=== PATIENT | female | born 1985 | race Caucasian/White ===

== ENCOUNTER 2017-12-30 17:03 | Inpatient (IN) | payer OTHER ==
[2017-12-30] MEDS ORDERED: Sodium Chloride 0.9% 10 ML Syringe FLUSH PRN (17:12)
[2017-12-30] MEDS ORDERED: Oxytocin/Lactated Ringers 20 UNIT/1,000 ML BAG IV ONE (17:14)
[2017-12-30] MEDS ORDERED: Lactated Ringers 1,000 ML IV SCH (17:15)
--- NOTE | 2017-12-30 17:49 | PCM.LDHP ---
L&D History of Present Illness - General Date of Service: 12/30/17 Admit Problem/Dx: Admission Diagnosis/Problem Admission Diagnosis/Problem Source of Information: Patient History Limitations: Reports: No Limitations - History of Present Illness Introduction:: 32 JESS 12/29/2017 EGA 40w1d spontaneous rupture of membranes at 1630 approximately, clear fluid. GBS negative. Presented to L&D at 7 cm at 1709 Timing/Duration: Reports: hour(s): Location, : Reports: Abdomen, Lower back Quality: Reports: Ache, Dull, Pressure Severity: Severe Pain Score: 10 Improves with: Reports: None Worsens with: Reports: None Associated Symptoms: Reports: N - Related Data Allergies/Adverse Reactions: Allergies Allergy/AdvReac Type Severity Reaction Status Date / Time No Known Allergies Allergy Verified 08/31/16 03:44 Home Medications: Home Meds Acetaminophen [Tylenol] 650 mg PO Q6H PRN #0 tablet 09/01/16 [Rx] Docusate Sodium [Colace] 100 mg PO BID PRN #0 cap 09/01/16 [Rx] Ibuprofen [IJD: Ibuprofen] 200 - 600 mg PO Q6H PRN #0 tablet 09/01/16 [Rx] Witch Terese [Tucks] 1 pad TOP ASDIRECTED PRN #0 pad 09/01/16 [Rx] Past Medical History Cardiovascular History: Reports: None Respiratory History: Reports: Other (See Below) Other Respiratory History: Pt getting over current URI-cough. No fevers, no abx taken. Gastrointestinal History: Reports: None Genitourinary History: Reports: UTI, Recurrent Other Genitourinary History: Frequent UTI with . Does not take abx, uses other homeopathic txs instead. IMMIGRATION PARALEGAL History: Reports: Musculoskeletal History: Reports: Other (See Below) Other Musculoskeletal History: Facial kick from a horse in 2012 with 5 orbital/ facial bone fractures. Healed without suregery/ incident. Neurological History: Reports: None Psychiatric History: Reports: None Endocrine/Metabolic History: Reports: None Hematologic History: Reports: None Immunologic History: Reports: None Oncologic (Cancer) History: Reports: None Dermatologic History: Reports: None - Past Surgical History HEENT Surgical History: Reports: Oral Surgery Female Surgical History: Reports: Breast Biopsy Oncologic Surgical History: Reports: Biopsy of Breast, Other (See Below) - History Comment History Comment: vits Social & Family History - Family History Family Medical History: Noncontributory - Tobacco Use Smoking Status *Q: Former Smoker (quit vaping 10 months ago) Years of Tobacco use: 6 Second Hand Smoke Exposure: No - Caffeine Use Caffeine Use: Reports: None - Alcohol Use Days Per Week of Alcohol Use: 0 - Recreational Drug Use Recreational Drug Use: No H&P Review of Systems - Review of Systems: Review Of Systems: See Below General: Reports: No Symptoms HEENT: Reports: No Symptoms Pulmonary: Reports: No Symptoms Cardiovascular: Reports: No Symptoms Gastrointestinal: Reports: No Symptoms Genitourinary: Reports: No Symptoms Musculoskeletal: Reports: No Symptoms Skin: Reports: No Symptoms Psychiatric: Reports: No Symptoms Neurological: Reports: No Symptoms Hematologic/Lymphatic: Reports: No Symptoms Immunologic: Reports: No Symptoms L&D Exam - Exam Exam: See Below - OB Specific Fundal Height In cm: 39 Contraction Duration (sec): 60 Contraction Frequency (min): 2 Contraction Intensity: Strong Movement: Active Heart Tones: Present Heart Tones per Min: 135 Heart Rate (FHR) Variability: Moderate (6-25 bmp) Presentation: Right Occiput Anterior (ELSA) - Baron Score Baron Score Cervix Position: Anterior Baron Score Consistency: Soft Baron Score Effacement: >80% Baron Score Dilation: > 5 cm Baron Score Infant's Station: +1, +2 Baron Score Total: 13 - Exam General: Alert, Oriented HEENT: Conjunctiva Clear, Mucosa Moist & [employer], PERRLA Neck: Supple, Trachea Midline Lungs: Clear to Auscultation, Normal Respiratory Effort Cardiovascular: Regular Rate, Regular Rhythm GI/Abdominal Exam: Normal Bowel Sounds, Soft, Non-Tender Genitourinary: Normal external exam, Normal bimanual exam, Normal speculum exam Extremities: Normal Inspection, Normal Range of Motion, Non-Tender, No Pedal Edema, Normal Capillary Refill Skin: Warm, Dry, Intact Neurological: Reflexes Equal Bilateral Psychiatric: Alert, Normal Affect, Normal Mood - Patient Data Lab Results Last 24 hrs: Laboratory Results - last 24 hr 12/30/17 Range/Units 17:34 WBC 12.93 H (3.98-10.04) K/mm3 RBC 4.49 (3.98-5.22) M/mm3 Hgb 13.2 (11.2-15.7) gm/L Hct 39.4 (34.1-44.9) % MCV 87.8 (79.4-94.8) fl MCH 29.4 (25.6-32.2) pg MCHC 33.5 (32.2-35.5) g/dl RDW Std Deviation 44.5 (36.4-46.3) fL Plt Count 217 (182-369) K/mm3 MPV 11.0 (9.4-12.3) fl Result Diagrams: 12/30/17 17:34 - Problem List (1) 41 weeks gestation of SNOMED Code(s): 05970604 ICD Code: Z3A.41 - 41 WEEKS GESTATION OF Status: Acute Current Visit: Yes (2) Normal vaginal delivery SNOMED Code(s): 74124614 ICD Code: O80 - ENCOUNTER FOR FULL-TERM UNCOMPLICATED DELIVERY Status: Acute Current Visit: Yes Problem List Initiated/Reviewed/Updated: No Orders Last 24hrs: Active Orders 24 hr Category Date Time Status Activity as Tolerated [RC] PFP Care 12/30/17 17:12 Active Communication Order [RC] ASDIRECTED Care 12/30/17 17:12 Active Heart Tones [RC] ASDIRECTED Care 12/30/17 17:12 Active Notify Provider [RC] PFP Care 12/30/17 17:12 Active Notify Provider [RC] PRN Care 12/30/17 17:12 Active Peripheral IV Care [RC] . DIRECTED Care 12/30/17 17:12 Active Vital Signs [RC] PER UNIT ROUTINE Care 12/30/17 17:12 Active Clear Liquid Diet [DIET] Diet 12/30/17 Dinner Active CBC WITH MANUAL DIFF [HEME] Stat Lab 12/30/17 17:34 Results Lactated Ringers [Ringers, Lactated] 1,000 ml Med 12/30/17 17:15 Active IV ASDIRECTED Oxytocin [Pitocin] 20 unit Med 12/30/17 17:15 Active Lactated Ringers [Ringers, Lactated] 1,000 ml IV ASDIRECTED Sodium Chloride 0.9% [Saline Flush] Med 12/30/17 17:12 Active 10 ml FLUSH ASDIRECTED PRN Electronic Heart Tones Ext w TOCO [WOMSER] Oth 12/30/17 17:12 Ordered Routine Electronic Heart Tones Internal [WOMSER] Per Unit Oth 12/30/17 17:12 Ordered Routine Peripheral IV Insertion Adult [OM.PC] Routine Oth 12/30/17 17:12 Ordered Resuscitation Status Routine Resus Stat 12/30/17 17:12 Ordered Medication Orders Lactated Ringer's (Ringers, Lactated) 1,000 mls @ 100 mls/hr IV ASDIRECTED EVITA Oxytocin 20 unit/ Lactated (Ringer's) 1,002 mls @ 1,503 mls/hr IV ASDIRECTED EVITA; 500 MUNITS/MIN PRN Reason: Protocol Sodium Chloride (Saline Flush) 10 ml FLUSH ASDIRECTED PRN PRN Reason: Keep Vein Open
--- NOTE | 2017-12-30 17:55 | PCM.DEL ---
L & D Note - General Info Date of Service: 12/30/17 Mother's Due Date: 12/29/17 - Delivery Note Labor: Spontaneous Delivery Outcome: Livebirth (male liveborn 1733 hrs Saturday12/30/17 ELSA APGARs 8/9 no lacerations no anesthesia) Infant Delivery Method: Spontaneous Vaginal Delivery-Single Infant Delivery Mode: Spontaneous Presentation: Right Occiput Anterior (ELSA) Nuchal Cord: None Prep: Povidone-Iodine (Betadine Anesthesia Type: None Episiotomy Type: None Laceration: None Placenta: Intact, Spontaneous (173512/30/2017 Makenna eccentric cord insertion keeping placenta ) Cord: 3 Vessels Estimated Blood Loss: 250 Resuscitation Needed: No Provider: Bjorn Valencia Score 1 min: 8 Score 5 min: 9 - Patient Data Lab Results Last 24 Hours: Laboratory Results - last 24 hr 12/30/17 Range/Units 17:34 WBC 12.93 H (3.98-10.04) K/mm3 RBC 4.49 (3.98-5.22) M/mm3 Hgb 13.2 (11.2-15.7) gm/L Hct 39.4 (34.1-44.9) % MCV 87.8 (79.4-94.8) fl MCH 29.4 (25.6-32.2) pg MCHC 33.5 (32.2-35.5) g/dl RDW Std Deviation 44.5 (36.4-46.3) fL Plt Count 217 (182-369) K/mm3 MPV 11.0 (9.4-12.3) fl Med Orders - Current: Current Medications Lactated Ringer's (Ringers, Lactated) 1,000 mls @ 100 mls/hr IV ASDIRECTED EVITA Oxytocin 20 unit/ Lactated (Ringer's) 1,002 mls @ 1,503 mls/hr IV ASDIRECTED EVITA; 500 MUNITS/MIN PRN Reason: Protocol Sodium Chloride (Saline Flush) 10 ml FLUSH ASDIRECTED PRN PRN Reason: Keep Vein Open Discontinued Medications Oxytocin/Lactated Ringer's (Pitocin In Lr 20 Units/1,000 Ml) Confirm Administered Dose 20 unit in 1,000 mls @ as directed IV .[facility] ONE Stop: 12/30/17 17:15 - Problem List & Annotations (1) 41 weeks gestation of SNOMED Code(s): 49981219 Code(s): Z3A.41 - 41 WEEKS GESTATION OF Status: Acute Current Visit: Yes (2) Normal vaginal delivery SNOMED Code(s): 65390184 Code(s): O80 - ENCOUNTER FOR FULL-TERM UNCOMPLICATED DELIVERY Status: Acute Current Visit: Yes - Problem List Review Problem List Initiated/Reviewed/Updated: No - My Orders Last 24 Hours: My Active Orders 12/30/17 17:12 Activity as Tolerated [RC] PFP Communication Order [RC] ASDIRECTED Heart Tones [RC] ASDIRECTED Notify Provider [RC] PFP Notify Provider [RC] PRN Peripheral IV Care [RC] . DIRECTED Vital Signs [RC] PER UNIT ROUTINE Sodium Chloride 0.9% [Saline Flush] 10 ml FLUSH ASDIRECTED PRN Electronic Heart Tones Ext w TOCO [WOMSER] Routine Electronic Heart Tones Internal [WOMSER] Per Unit Routine Peripheral IV Insertion Adult [OM.PC] Routine Resuscitation Status Routine 12/30/17 17:15 Lactated Ringers [Ringers, Lactated] 1,000 ml IV ASDIRECTED Oxytocin [Pitocin] 20 unit Lactated Ringers [Ringers, Lactated] 1,000 ml IV ASDIRECTED 12/30/17 17:34 CBC WITH MANUAL DIFF [HEME] Stat 12/30/17 17:49 Patient Status Manage Transfer [TRANSFER] Routine 12/30/17 Dinner Clear Liquid Diet [DIET]
[2017-12-30] MEDS ORDERED: Acetaminophen 325 MG Tab PO PRN (18:17)
[2017-12-30] MEDS ORDERED: Lanolin 100% Cream 7 GM Tube TOP PRN (18:17)
[2017-12-30] MEDS ORDERED: Benzocaine/Menthol 20%-0.5% Spray 56 GM Canister TOP PRN (18:17)
[2017-12-30] MEDS ORDERED: Docusate Sodium 100 MG Cap PO PRN (18:17)
[2017-12-30] MEDS ORDERED: Witch Hazel Medicated Pads 100/Jar TOP PRN (18:17)
[2017-12-30] MEDS: Ibuprofen 600 MG Tab PO PRN ×2 (18:41→22:33)
[2017-12-31] MEDS: Ibuprofen 600 MG Tab PO PRN ×4 (03:12→18:04)
--- NOTE | 2017-12-31 09:27 | PCM.DCSUM1 ---
Discharge Summary - Hospital Course Free Text/Narrative:: Doing well post vaginal delivery yesterday 12/30/2017 1733 hrs [facility] LIVE L/D Delivery Note Patient Name: DEXTER CORONADO Date of : 89 Patient Status: Inpatient Attending Provider: Bjorn Valencia Date: 12/30/17 17:52 Initialization Date: 12/30/17 17:52 L & D Note - General Info Date of Service: 12/30/17 Mother's Due Date: 12/29/17 - Delivery Note Labor: Spontaneous Delivery Outcome: Livebirth (male liveborn 1733 hrs Saturday12/30/17 ELSA APGARs 8/9 no lacerations no anesthesia) Infant Delivery Method: Spontaneous Vaginal Delivery-Single Delivery Mode: Spontaneous Presentation: Right Occiput Anterior (ELSA) Nuchal Cord: None Prep: Povidone-Iodine (Betadine Anesthesia Type: None Episiotomy Type: None Laceration: None Placenta: Intact, Spontaneous (173512/30/2017 Makenna eccentric cord insertion keeping placenta ) Cord: 3 Vessels Estimated Blood Loss: 250 Resuscitation Needed: No Provider: Bjorn Valencia Score 1 min: 8 Score 5 min: 9 - Patient Data Lab Results Last 24 Hours: Laboratory Results - last 24 hr 12/30/17 Range/Units 17:34 WBC 12.93 H (3.98-10.04) K/mm3 RBC 4.49 (3.98-5.22) M/mm3 Hgb 13.2 (11.2-15.7) gm/L Hct 39.4 (34.1-44.9) % MCV 87.8 (79.4-94.8) fl MCH 29.4 (25.6-32.2) pg MCHC 33.5 (32.2-35.5) g/dl RDW Std Deviation 44.5 (36.4-46.3) fL Plt Count 217 (182-369) K/mm3 MPV 11.0 (9.4-12.3) fl Med Orders - Current: Current Medications Lactated Ringer's (Ringers, Lactated) 1,000 mls @ 100 mls/hr IV ASDIRECTED EVITA Oxytocin 20 unit/ Lactated (Ringer's) 1,002 mls @ 1,503 mls/hr IV ASDIRECTED EVITA; 500 MUNITS/MIN PRN Reason: Protocol Sodium Chloride (Saline Flush) 10 ml FLUSH ASDIRECTED PRN PRN Reason: Keep Vein Open Discontinued Medications Oxytocin/Lactated Ringer's (Pitocin In Lr 20 Units/1,000 Ml) Confirm Administered Dose 20 unit in 1,000 mls @ as directed IV .[employer] Stop: 12/30/17 17:15 - Problem List & Annotations (1) 41 weeks gestation of SNOMED Code(s): 51176610 Code(s): Z3A.41 - 41 WEEKS GESTATION OF Status: Acute Current Visit: Yes (2) Normal vaginal delivery SNOMED Code(s): 74258287 Code(s): O80 - ENCOUNTER FOR FULL-TERM UNCOMPLICATED DELIVERY Status: Acute Current Visit: Yes - Problem List Review Problem List Initiated/Reviewed/Updated: No - My Orders Last 24 Hours: My Active Orders 12/30/17 17:12 Activity as Tolerated [RC] PFP Communication Order [RC] ASDIRECTED Heart Tones [RC] ASDIRECTED Notify Provider [RC] PFP Notify Provider [RC] PRN Peripheral IV Care [RC] . DIRECTED Vital Signs [RC] PER UNIT ROUTINE Sodium Chloride 0.9% [Saline Flush] 10 ml FLUSH ASDIRECTED PRN Electronic Heart Tones Ext w TOCO [WOMSER] Routine Electronic Heart Tones Internal [WOMSER] Per Unit Routine Peripheral IV Insertion Adult [OM.PC] Routine Resuscitation Status Routine 12/30/17 17:15 Lactated Ringers [Ringers, Lactated] 1,000 ml IV ASDIRECTED Oxytocin [Pitocin] 20 unit Lactated Ringers [Ringers, Lactated] 1,000 ml IV ASDIRECTED 12/30/17 17:34 CBC WITH MANUAL DIFF [HEME] Stat 12/30/17 17:49 Patient Status Manage Transfer [TRANSFER] Routine 12/30/17 Dinner Clear Liquid Diet [DIET] HPI Initial Comments: Presented to L&D 7 cm dilated, delivery shortly thereafter [facility] LIVE L/D Delivery Note Patient Name: DEXTER CORONADO JU Date of : 89 Patient Status: Inpatient Attending Provider: Bjorn Valencia Date: 12/30/17 17:52 Initialization Date: 12/30/17 17:52 L & D Note - General Info Date of Service: 12/30/17 Mother's Due Date: 12/29/17 - Delivery Note Labor: Spontaneous Delivery Outcome: Livebirth (male liveborn 1733 hrs Saturday12/30/17 ELSA APGARs 8/9 no lacerations no anesthesia) Infant Delivery Method: Spontaneous Vaginal Delivery-Single Delivery Mode: Spontaneous Presentation: Right Occiput Anterior (ELSA) Nuchal Cord: None Prep: Povidone-Iodine (Betadine Anesthesia Type: None Episiotomy Type: None Laceration: None Placenta: Intact, Spontaneous (173512/30/2017 [place] eccentric cord insertion keeping placenta ) Cord: 3 Vessels Estimated Blood Loss: 250 Resuscitation Needed: No Provider: Bjorn Valencia Score 1 min: 8 Score 5 min: 9 - Patient Data Lab Results Last 24 Hours: Laboratory Results - last 24 hr 12/30/17 Range/Units 17:34 WBC 12.93 H (3.98-10.04) K/mm3 RBC 4.49 (3.98-5.22) M/mm3 Hgb 13.2 (11.2-15.7) gm/L Hct 39.4 (34.1-44.9) % MCV 87.8 (79.4-94.8) fl MCH 29.4 (25.6-32.2) pg MCHC 33.5 (32.2-35.5) g/dl RDW Std Deviation 44.5 (36.4-46.3) fL Plt Count 217 (182-369) K/mm3 MPV 11.0 (9.4-12.3) fl Med Orders - Current: Current Medications Lactated Ringer's (Ringers, Lactated) 1,000 mls @ 100 mls/hr IV ASDIRECTED EVITA Oxytocin 20 unit/ Lactated (Ringer's) 1,002 mls @ 1,503 mls/hr IV ASDIRECTED EVITA; 500 MUNITS/MIN PRN Reason: Protocol Sodium Chloride (Saline Flush) 10 ml FLUSH ASDIRECTED PRN PRN Reason: Keep Vein Open Discontinued Medications Oxytocin/Lactated Ringer's (Pitocin In Lr 20 Units/1,000 Ml) Confirm Administered Dose 20 unit in 1,000 mls @ as directed IV .[facility] Stop: 12/30/17 17:15 - Problem List & Annotations (1) 41 weeks gestation of SNOMED Code(s): 92121355 Code(s): Z3A.41 - 41 WEEKS GESTATION OF Status: Acute Current Visit: Yes (2) Normal vaginal delivery SNOMED Code(s): 48380508 Code(s): O80 - ENCOUNTER FOR FULL-TERM UNCOMPLICATED DELIVERY Status: Acute Current Visit: Yes - Problem List Review Problem List Initiated/Reviewed/Updated: No - My Orders Last 24 Hours: My Active Orders 12/30/17 17:12 Activity as Tolerated [RC] PFP Communication Order [RC] ASDIRECTED Heart Tones [RC] ASDIRECTED Notify Provider [RC] PFP Notify Provider [RC] PRN Peripheral IV Care [RC] . DIRECTED Vital Signs [RC] PER UNIT ROUTINE Sodium Chloride 0.9% [Saline Flush] 10 ml FLUSH ASDIRECTED PRN Electronic Heart Tones Ext w TOCO [WOMSER] Routine Electronic Heart Tones Internal [WOMSER] Per Unit Routine Peripheral IV Insertion Adult [OM.PC] Routine Resuscitation Status Routine 12/30/17 17:15 Lactated Ringers [Ringers, Lactated] 1,000 ml IV ASDIRECTED Oxytocin [Pitocin] 20 unit Lactated Ringers [Ringers, Lactated] 1,000 ml IV ASDIRECTED 12/30/17 17:34 CBC WITH MANUAL DIFF [HEME] Stat 12/30/17 17:49 Patient Status Manage Transfer [TRANSFER] Routine 12/30/17 Dinner Clear Liquid Diet [DIET] Brief History: [facility] LIVE . L/D Delivery Note. [facility]: [id number]. Date of : Patient Status: Inpatient. Attending Provider: Bjorn Valencia Number: [id number]. Date: 12/30/17 17:52Initialization Date: 12/30/17 17:52. L & D Note. - General Info. Date of Service: 12/30/17. Mother's Due Date: 12/29/17. - Delivery Note. Labor: Spontaneous. Delivery Outcome: Livebirth ( male liveborn 1733 hrs Saturday12/30/17 ELSA APGARs 8/9 no lacerations no anesthesia). Infant Delivery Method: Spontaneous Vaginal Delivery-Single. Infant Delivery Mode: Spontaneous. Presentation: Right Occiput Anterior ( ELSA). Nuchal Cord: None. Prep: Povidone-Iodine (Betadine. Anesthesia Type: None. Episiotomy Type: None. Laceration: None. Placenta: Intact, Spontaneous (173512/30/2017 Makenna eccentric cord insertion keeping placenta ). Cord: 3 Vessels. Estimated Blood Loss: 250. Resuscitation Needed: No. Provider: Bjorn Valencia. Score 1 min: 8. Score 5 min : 9. - Patient Data. Lab Results Last 24 Hours: Laboratory Results - last 24 hr. 12/30/17Range/Units. 17:34. WBC 12.93 H (3.98-10.04) K/mm3. RBC 4.49 ( 3.98-5.22) M/mm3. Hgb 13.2 (11.2-15.7) gm/L. Hct 39.4 (34.1-44.9) %. MCV 87.8 (79.4-94.8) fl. MCH 29.4 (25.6-32.2) pg. MCHC 33.5 (32.2-35.5) g/dl. RDW Std Deviation 44.5 (36.4-46.3) fL. Plt Count 217 (182-369) K/mm3. MPV 11.0 (9.4-12.3) fl. Med Orders - Current: Current Medications. Lactated Ringer's (Ringers, Lactated) 1,000 mls @ 100 mls/hr IV ASDIRECTED EVITA. Oxytocin 20 unit/ Lactated (Ringer's) 1,002 mls @ 1,503 mls/hr IV ASDIRECTED EVITA; 500 MUNITS/MIN. PRN Reason: Protocol. Sodium Chloride (Saline Flush) 10 ml FLUSH ASDIRECTED PRN. PRN Reason: Keep Vein Open. Discontinued Medications. Oxytocin/Lactated Ringer's (Pitocin In Lr 20 Units/1,000 Ml) Confirm Administered Dose 20 unit in 1,000 mls @ as directed IV .[facility]. Stop: 12/30/17 17:15. - Problem List & Annotations. (1) 41 weeks gestation of . SNOMED Code(s): 14022654. Code(s): Z3A.41 - 41 WEEKS GESTATION OF Status: Acute Current Visit: Yes. (2) Normal vaginal delivery. SNOMED Code(s): 18715996. Code(s): O80 - ENCOUNTER FOR FULL-TERM UNCOMPLICATED DELIVERY Status: Acute Current Visit: Yes. - Problem List Review. Problem List Initiated/Reviewed/Updated: No. - My Orders. Last 24 Hours: My Active Orders. 12/30/17 17:12. Activity as Tolerated [RC] PFP. Communication Order [ RC] ASDIRECTED. Heart Tones [RC] ASDIRECTED. Notify Provider [RC] PFP. Notify Provider [RC] PRN. Peripheral IV Care [RC] . DIRECTED. Vital Signs [ RC] PER UNIT ROUTINE. Sodium Chloride 0.9% [Saline Flush] 10 ml FLUSH ASDIRECTED PRN. Electronic Heart Tones Ext w TOCO [WOMSER] Routine. Electronic Heart Tones Internal [WOMSER] Per Unit Routine. Peripheral IV Insertion Adult [OM.PC] Routine. Resuscitation Status Routine. 12/30/17 17: 15. Lactated Ringers [Ringers, Lactated] 1,000 ml IV ASDIRECTED. Oxytocin [ Pitocin] 20 unit Lactated Ringers [Ringers, Lactated] 1,000 ml IV ASDIRECTED. 12/30/17 17:34. CBC WITH MANUAL DIFF [HEME] Stat. 12/30/17 17:49. Patient Status Manage Transfer [TRANSFER] Routine. 12/30/17 Dinner. Clear Liquid Diet [DIET] - Discharge Data Discharge Date: 12/31/17 Discharge Disposition: Home, Self-Care 01 Condition: Good - Discharge Diagnosis/Problem(s) (1) 41 weeks gestation of SNOMED Code(s): 61994305 ICD Code: Z3A.41 - 41 WEEKS GESTATION OF Status: Acute Current Visit: Yes (2) Normal vaginal delivery SNOMED Code(s): 05370394 ICD Code: O80 - ENCOUNTER FOR FULL-TERM UNCOMPLICATED DELIVERY Status: Acute Current Visit: Yes - Patient Summary/Data Complications: none Consults: none Hospital Course: uneventful - Patient Instructions Diet: Regular Diet as Tolerated Driving: Do Not Drive (x48 hrs) Showering/Bathing: May Shower, No Tub Bathing/Swimming (x6 weeks may take sitz bath) Notify Provider of: Fever, Increased Pain, Swelling and Redness, Drainage, Nausea and/or Vomiting - Discharge Plan Home Medications: Home Meds Acetaminophen [Tylenol] 650 mg PO Q6H PRN #0 tablet 09/01/16 [Rx] Docusate Sodium [Colace] 100 mg PO BID PRN #0 cap 09/01/16 [Rx] Ibuprofen [IJD: Ibuprofen] 200 - 600 mg PO Q6H PRN #0 tablet 09/01/16 [Rx] Witch Terese [Tucks] 1 pad TOP ASDIRECTED PRN #0 pad 09/01/16 [Rx] Referrals: Bjorn Valencia MD [Primary Care Provider] - (01/14/2018) - Discharge Summary/Plan Comment DC Time >30 min.: No - Patient Data Vitals - Most Recent: Last Vital Signs Temp 97.3 F 12/31/17 06:21 Pulse 83 12/31/17 06:21 Resp 16 12/31/17 06:21 BP 125/84 12/31/17 06:21 Pulse Ox 97 12/31/17 06:21 Weight - Most Recent: 167 lb I&O - Last 24 hours: Intake & Output 12/30/17 12/31/17 12/31/17 22:59 06:59 14:59 Intake Total 120 Balance 120 Lab Results - Last 24 hrs: Laboratory Results - last 24 hr 12/30/17 12/31/17 Range/Units 17:34 07:00 WBC 12.93 H 14.74 H (3.98-10.04) K/mm3 RBC 4.49 4.24 (3.98-5.22) M/mm3 Hgb 13.2 12.8 (11.2-15.7) gm/L Hct 39.4 38.0 (34.1-44.9) % MCV 87.8 89.6 (79.4-94.8) fl MCH 29.4 30.2 (25.6-32.2) pg MCHC 33.5 33.7 (32.2-35.5) g/dl RDW Std Deviation 44.5 45.4 (36.4-46.3) fL Plt Count 217 207 (182-369) K/mm3 MPV 11.0 11.1 (9.4-12.3) fl Neut % (Auto) 75.2 H (34.0-71.1) % Lymph % (Auto) 16.7 L (19.3-51.7) % [place] % (Auto) 6.7 (4.7-12.5) % Eos % (Auto) 0.5 L (0.7-5.8) Baso % (Auto) 0.2 (0.1-1.2) % Neut # (Auto) 11.09 H (1.56-6.13) K/mm3 Lymph # (Auto) 2.46 (1.18-3.74) K/mm3 [place] # (Auto) 0.99 H (0.24-0.36) K/mm3 Eos # (Auto) 0.07 (0.04-0.36) K/mm3 Baso # (Auto) 0.03 (0.01-0.08) K/mm3 Neutrophils % (Manual) 74 H (40-60) % Band Neutrophils % 0 (0-10) % Lymphocytes % (Manual) 19 L (20-40) % Atypical Lymphs % 0 % Monocytes % (Manual) 3 (2-10) % Eosinophils % (Manual) 4 (0.7-5.8) % Basophils % (Manual) 0 L (0.1-1.2) Platelet Estimate Adequate Plt Morphology Comment Normal RBC Morph Comment Normal Med Orders - Current: Current Medications Acetaminophen (Tylenol) 650 mg PO Q4H PRN PRN Reason: mild pain or fever Benzocaine/Menthol (Dermoplast Pain Relief [place]) 0 gm TOP ASDIRECTED PRN PRN Reason: Perineal Comfort Measure Docusate Sodium (Colace) 100 mg PO BID PRN PRN Reason: Constipation Emollient Ointment (Lansinoh Hpa) 0 gm TOP ASDIRECTED PRN PRN Reason: Sore Nipples Ibuprofen (Motrin) 600 mg PO Q4H PRN PRN Reason: Mild pain or fever Last Admin: 12/31/17 07:21 Dose: 600 mg Witch Terese (Tucks) 1 pad TOP ASDIRECTED PRN PRN Reason: Hemorrhoid pain Discontinued Medications Lactated Ringer's (Ringers, Lactated) 1,000 mls @ 100 mls/hr IV ASDIRECTED EVITA Oxytocin 20 unit/ Lactated (Ringer's) 1,002 mls @ 1,503 mls/hr IV ASDIRECTED EVITA; 500 MUNITS/MIN PRN Reason: Protocol Oxytocin/Lactated Ringer's (Pitocin In Lr 20 Units/1,000 Ml) Confirm Administered Dose 20 unit in 1,000 mls @ as directed IV .[facility] Stop: 12/30/17 17:15 Sodium Chloride (Saline Flush) 10 ml FLUSH ASDIRECTED PRN PRN Reason: Keep Vein Open *Q Meaningful Use (DIS) - VTE *Q VTE Criteria *Q: - Stroke *Q Stroke Criteria *Q: - AMI *Q AMI Criteria *Q:
[2017-12-31 12:45] VITALS: BP 122/76
== END 2017-12-31 20:00 | disposition home or self-care (01) | DRG 775 ==
LOC: JD.OBCHECK 17:03 → JD.OB 17:20 → OBSVTOIN 17:33 → INTOOBSV 17:33
PROVIDERS: ADMIT Obstetrics & Gynecology; ATTEND Obstetrics & Gynecology
PROC: 10E0XZZ Delivery of Products of Conception, External Approach (ICD-10-PCS; principal; 2017-12-30)
DX: O42.02 Full-term premature rupture of membranes, onset of labor within 24 hours of rupture (principal); Z37.0 Single live birth; Z3A.40 40 weeks gestation of pregnancy; Z87.891 Personal history of nicotine dependence
CPT/HCPCS: 36415; 59409; 85025; A9270-GY

== ENCOUNTER 2019-11-25 03:44 | Inpatient (IN) | payer OTHER ==
[2019-11-25] MEDS ORDERED: Nalbuphine 10 MG/ML Syringe IVPUSH PRN (04:14)
[2019-11-25] MEDS ORDERED: Sodium Chloride 0.9% 10 ML Syringe FLUSH PRN (04:14)
[2019-11-25] MEDS ORDERED: Oxytocin/Lactated Ringers 20 UNIT/1,000 ML BAG IV SCH (04:15)
[2019-11-25] MEDS ORDERED: Lactated Ringers 1,000 ML IV SCH (04:15)
--- NOTE | 2019-11-25 04:48 | PCM.LDHP ---
L&D History of Present Illness - General Date of Service: 11/25/19 Admit Problem/Dx: Patient Status Order with Admit Dx/Problem 11/25/19 03:54 Patient Status [ADT] Routine 11/25/19 04:15 Patient Status [ADT] Routine Admission Diagnosis/Problem Admission Diagnosis/Problem Source of Information: Patient History Limitations: Reports: No Limitations - History of Present Illness Introduction:: 34-year-old 005 JESS 12/07/19 presented to labor and delivery at 3:55 AM in active labor. History of ruptured membranes or leaking fluid. No heavy vaginal bleeding. I've to 6 cm dilated upon presentation to labor and delivery. GBS negative Improves with: Reports: None Worsens with: Reports: None Associated Symptoms: Reports: N - Related Data Allergies/Adverse Reactions: Allergies Allergy/AdvReac Type Severity Reaction Status Date / Time No Known Allergies Allergy Verified 08/31/16 03:44 Home Medications: Home Meds Acetaminophen [Tylenol] 650 mg PO Q6H PRN #0 tablet 09/01/16 [Rx] Docusate Sodium [Colace] 100 mg PO BID PRN #0 cap 09/01/16 [Rx] Ibuprofen [IJD: Ibuprofen] 200 - 600 mg PO Q6H PRN #0 tablet 09/01/16 [Rx] Witch Terese [Tucks] 1 pad TOP ASDIRECTED PRN #0 pad 09/01/16 [Rx] Past Medical History - Past Health History Medical/Surgical History: Denies Medical/Surgical History Cardiovascular History: Reports: None Respiratory History: Reports: Other (See Below) Other Respiratory History: Pt getting over current URI-cough. No fevers, no abx taken. Gastrointestinal History: Reports: None Genitourinary History: Reports: UTI, Recurrent Other Genitourinary History: Frequent UTI with . Does not take abx, uses other homeopathic txs instead. [employer] PLAYER History: Reports: Musculoskeletal History: Reports: Other (See Below) Other Musculoskeletal History: Facial kick from a horse in 2012 with 5 orbital/ facial bone fractures. Healed without suregery/ incident. Neurological History: Reports: None Psychiatric History: Reports: None Endocrine/Metabolic History: Reports: None Hematologic History: Reports: None Immunologic History: Reports: None Oncologic (Cancer) History: Reports: None Dermatologic History: Reports: None - Infectious Disease History Infectious Disease History: Reports: None - Past Surgical History HEENT Surgical History: Reports: Oral Surgery Female Surgical History: Reports: Breast Biopsy Oncologic Surgical History: Reports: Biopsy of Breast, Other (See Below) - History Comment History Comment: vits Social & Family History - Family History Family Medical History: Noncontributory - Caffeine Use Caffeine Use: Reports: None H&P Review of Systems - Review of Systems: Review Of Systems: See Below General: Reports: No Symptoms HEENT: Reports: No Symptoms Pulmonary: Reports: No Symptoms Cardiovascular: Reports: No Symptoms Gastrointestinal: Reports: No Symptoms Genitourinary: Reports: No Symptoms Musculoskeletal: Reports: No Symptoms Skin: Reports: No Symptoms Psychiatric: Reports: No Symptoms Neurological: Reports: No Symptoms Hematologic/Lymphatic: Reports: No Symptoms Immunologic: Reports: No Symptoms L&D Exam - Exam Exam: See Below - Vital Signs Weight: 170 lb - OB Specific Contraction Intensity: Strong Movement: Active Heart Tones: Present Heart Tones per Min: 140 Heart Rate (FHR) Variability: Moderate (6-25 bmp) Presentation: Vertex - Baron Score Baron Score Cervix Position: Anterior Baron Score Consistency: Soft Baron Score Effacement: >80% Baron Score Dilation: > 5 cm Baron Score 's Station: -1 ,0 Baron Score Total: 12 - Exam General: Alert, Oriented HEENT: Conjunctiva Clear, Mucosa Moist & [place], Normal Nasal Septum, Posterior Pharynx Clear, PERRLA Neck: Supple, Trachea Midline Lungs: Clear to Auscultation, Normal Respiratory Effort Cardiovascular: Regular Rate, Regular Rhythm GI/Abdominal Exam: Normal Bowel Sounds, Soft, Non-Tender Extremities: Normal Inspection, Non-Tender, No Pedal Edema, Normal Capillary Refill Skin: Warm, Dry, Intact Psychiatric: Alert, Normal Affect, Normal Mood - Patient Data Lab Results Last 24 hrs: Laboratory Results - last 24 hr 11/25/19 Range/Units 04:25 WBC 14.63 H (3.98-10.04) K/mm3 RBC 4.54 (3.98-5.22) M/mm3 Hgb 13.6 (11.2-15.7) gm/dl Hct 41.0 (34.1-44.9) % MCV 90.3 (79.4-94.8) fl MCH 30.0 (25.6-32.2) pg MCHC 33.2 (32.2-35.5) g/dl RDW Std Deviation 45.2 (36.4-46.3) fL Plt Count 285 (182-369) K/mm3 MPV 10.7 (9.4-12.3) fl Neut % (Auto) 72.0 H (34.0-71.1) % Lymph % (Auto) 18.1 L (19.3-51.7) % [place] % (Auto) 6.7 (4.7-12.5) % Eos % (Auto) 0.9 (0.7-5.8) Baso % (Auto) 0.3 (0.1-1.2) % Neut # (Auto) 10.53 H (1.56-6.13) K/mm3 Lymph # (Auto) 2.65 (1.18-3.74) K/mm3 [place] # (Auto) 0.98 H (0.24-0.36) K/mm3 Eos # (Auto) 0.13 (0.04-0.36) K/mm3 Baso # (Auto) 0.05 (0.01-0.08) K/mm3 Result Diagrams: 11/25/19 04:25 - Problem List (1) 38 weeks gestation of SNOMED Code(s): 20406636 ICD Code: Z3A.38 - 38 WEEKS GESTATION OF Status: Acute Current Visit: No Problem List Initiated/Reviewed/Updated: No Orders Last 24hrs: Active Orders 24 hr Category Date Time Status Patient Status [ADT] Routine ADT 11/25/19 04:15 Active Activity as Tolerated [RC] PFP Care 11/25/19 04:15 Active Communication Order [RC] ASDIRECTED Care 11/25/19 04:15 Active Heart Tones [RC] ASDIRECTED Care 11/25/19 04:15 Active Non Stress Test [RC] PER UNIT ROUTINE Care 11/25/19 03:54 Active Non Stress Test [RC] PER UNIT ROUTINE Care 11/25/19 04:15 Active Notify Provider [RC] PFP Care 11/25/19 04:15 Active Notify Provider [RC] PRN Care 11/25/19 04:15 Active Peripheral IV Care [RC] . DIRECTED Care 11/25/19 04:15 Active Vital Signs [RC] PER UNIT ROUTINE Care 11/25/19 03:54 Active Vital Signs [RC] PER UNIT ROUTINE Care 11/25/19 04:15 Active Regular Diet [DIET] Diet 11/25/19 Breakfast Active CBC WITH AUTO DIFF [HEME] Stat Lab 11/25/19 04:25 Results RAPID PLASMA REAGIN,RPR [CHEM] Routine Lab 11/25/19 04:25 Received Lactated Ringers [Ringers, Lactated] 1,000 ml Med 11/25/19 04:15 Active IV ASDIRECTED Nalbuphine [Nubain] Med 11/25/19 04:14 Active 10 mg IVPUSH Q2H PRN Oxytocin/Lactated Ringers [Pitocin in LR 20 Units/1,000 Med 11/25/19 04:15 Active ML] 20 unit in 1,000 ml IV .CONTINUOUS Sodium Chloride 0.9% [Saline Flush] Med 11/25/19 04:14 Active 10 ml FLUSH ASDIRECTED PRN Electronic Heart Tones Ext w TOCO [WOMSER] Oth 11/25/19 04:15 Ordered Routine Electronic Heart Tones Internal [WOMSER] Per Unit Oth 11/25/19 04:15 Ordered Routine Peripheral IV Insertion Adult [OM.PC] Routine Oth 11/25/19 04:15 Ordered Resuscitation Status Routine Resus Stat 11/25/19 03:54 Ordered Medication Orders Lactated Ringer's (Ringers, Lactated) 1,000 mls @ 100 mls/hr IV ASDIRECTED EVITA Oxytocin/Lactated Ringer's (Pitocin In Lr 20 Units/1,000 Ml) 20 unit in 1,000 mls @ 500 mls/hr IV .CONTINUOUS EVITA Nalbuphine HCl (Nubain) 10 mg IVPUSH Q2H PRN PRN Reason: Pain Sodium Chloride (Saline Flush) 10 ml FLUSH ASDIRECTED PRN PRN Reason: Keep Vein Open Assessment/Plan Comment:: Plan delivery
--- NOTE | 2019-11-25 04:54 | PCM.DEL ---
L & D Note - General Info Date of Service: 11/25/19 Mother's Due Date: 12/07/19 - Delivery Note Labor: Spontaneous Delivery Outcome: Livebirth (Male liveborn Saturday11/25/19/ at 0431 hrs. male liveborn 3070 grams 7 pounds 10.4 ounces Apgars 8/9 at one and 5 minutes respectively MIR nuchal cord tight) Infant Delivery Method: Spontaneous Vaginal Delivery-Single Infant Delivery Mode: Spontaneous Presentation: Left Occiput Anterior (MIR) Nuchal Cord: Present (tight cut and delivery within 5 seconds) Prep: Povidone-Iodine (Betadine Anesthesia Type: None Episiotomy Type: None Laceration: None Placenta: Intact, Spontaneous (At 0433 hrs. on 11/25/2019) Cord: 3 Vessels Estimated Blood Loss: 250 Resuscitation Needed: No [place]: Suctioned, Bulb Syringe, Stimulated, Warmed, [place] Used, Warmer Used Provider: Bjorn Valencia Score 1 min: 8 Score 5 min: 9 - General Info Date of Service: 11/25/19 Functional Status: Reports: Pain Controlled - Review of Systems General: Reports: No Symptoms HEENT: Reports: No Symptoms Pulmonary: Reports: No Symptoms Cardiovascular: Reports: No Symptoms Gastrointestinal: Reports: No Symptoms Genitourinary: Reports: No Symptoms Musculoskeletal: Reports: No Symptoms Skin: Reports: No Symptoms Neurological: Reports: No Symptoms Psychiatric: Reports: No Symptoms - Patient Data Weight - Most Recent: 170 lb Lab Results Last 24 Hours: Laboratory Results - last 24 hr 11/25/19 Range/Units 04:25 WBC 14.63 H (3.98-10.04) K/mm3 RBC 4.54 (3.98-5.22) M/mm3 Hgb 13.6 (11.2-15.7) gm/dl Hct 41.0 (34.1-44.9) % MCV 90.3 (79.4-94.8) fl MCH 30.0 (25.6-32.2) pg MCHC 33.2 (32.2-35.5) g/dl RDW Std Deviation 45.2 (36.4-46.3) fL Plt Count 285 (182-369) K/mm3 MPV 10.7 (9.4-12.3) fl Neut % (Auto) 72.0 H (34.0-71.1) % Lymph % (Auto) 18.1 L (19.3-51.7) % [place] % (Auto) 6.7 (4.7-12.5) % Eos % (Auto) 0.9 (0.7-5.8) Baso % (Auto) 0.3 (0.1-1.2) % Neut # (Auto) 10.53 H (1.56-6.13) K/mm3 Lymph # (Auto) 2.65 (1.18-3.74) K/mm3 [place] # (Auto) 0.98 H (0.24-0.36) K/mm3 Eos # (Auto) 0.13 (0.04-0.36) K/mm3 Baso # (Auto) 0.05 (0.01-0.08) K/mm3 Med Orders - Current: Current Medications Lactated Ringer's (Ringers, Lactated) 1,000 mls @ 100 mls/hr IV ASDIRECTED EVITA Oxytocin/Lactated Ringer's (Pitocin In Lr 20 Units/1,000 Ml) 20 unit in 1,000 mls @ 500 mls/hr IV .CONTINUOUS EVITA Nalbuphine HCl (Nubain) 10 mg IVPUSH Q2H PRN PRN Reason: Pain Sodium Chloride (Saline Flush) 10 ml FLUSH ASDIRECTED PRN PRN Reason: Keep Vein Open - Exam General: Alert, Oriented HEENT: Pupils Equal, Mucous Membr. Moist/[place] Neck: Supple Lungs: Clear to Auscultation, Normal Respiratory Effort Cardiovascular: Regular Rate, Regular Rhythm (Female) Exam: Normal External Exam Extremities: Normal Inspection, Non-Tender, No Pedal Edema, Normal Capillary Refill Skin: Warm, Dry, Intact Neurological: No New Focal Deficit Psy/Mental Status: Alert, Normal Affect, Normal Mood - Problem List & Annotations (1) 38 weeks gestation of SNOMED Code(s): 56671174 Code(s): Z3A.38 - 38 WEEKS GESTATION OF Status: Acute Current Visit: No (2) Labor and delivery complicated by cord around neck, with compression, not applicable or unspecified SNOMED Code(s): 484273760 Code(s): O69.1XX0 - LABOR AND DELIVERY COMP BY CORD AROUND NECK, W COMPRSN, UNSP Status: Acute Current Visit: Yes (3) Born by normal vaginal delivery SNOMED Code(s): 579864892 Code(s): O80 - ENCOUNTER FOR FULL-TERM UNCOMPLICATED DELIVERY Status: Acute Current Visit: Yes - Problem List Review Problem List Initiated/Reviewed/Updated: No - My Orders Last 24 Hours: My Active Orders 11/25/19 03:54 Non Stress Test [RC] PER UNIT ROUTINE Vital Signs [RC] PER UNIT ROUTINE Resuscitation Status Routine 11/25/19 04:14 Nalbuphine [Nubain] 10 mg IVPUSH Q2H PRN Sodium Chloride 0.9% [Saline Flush] 10 ml FLUSH ASDIRECTED PRN 11/25/19 04:15 Patient Status [ADT] Routine Activity as Tolerated [RC] PFP Communication Order [RC] ASDIRECTED Heart Tones [RC] ASDIRECTED Non Stress Test [RC] PER UNIT ROUTINE Notify Provider [RC] PFP Notify Provider [RC] PRN Peripheral IV Care [RC] . DIRECTED Vital Signs [RC] PER UNIT ROUTINE Lactated Ringers [Ringers, Lactated] 1,000 ml IV ASDIRECTED Oxytocin/Lactated Ringers [Pitocin in LR 20 Units/1,000 ML] 20 unit in 1,000 ml IV .CONTINUOUS Electronic Heart Tones Ext w TOCO [WOMSER] Routine Electronic Heart Tones Internal [WOMSER] Per Unit Routine Peripheral IV Insertion Adult [OM.PC] Routine 11/25/19 04:25 CBC WITH AUTO DIFF [HEME] Stat RAPID PLASMA REAGIN,RPR [CHEM] Routine 11/25/19 Breakfast Regular Diet [DIET] - Plan Plan:: Plan delivery
[2019-11-25] MEDS ORDERED: Acetaminophen 325 MG Tab PO PRN (05:12)
[2019-11-25] MEDS ORDERED: Witch Hazel Medicated Pads 40/Jar TOP PRN (05:12)
[2019-11-25] MEDS ORDERED: Docusate Sodium 100 MG Cap PO PRN (05:12)
[2019-11-25] MEDS ORDERED: Benzocaine/Menthol 20%-0.5% Spray 56 GM Canister TOP PRN (05:29)
[2019-11-25] MEDS: Ibuprofen 600 MG Tab PO PRN ×5 (05:34→22:19)
[2019-11-26] MEDS: Ibuprofen 600 MG Tab PO PRN ×2 (05:04→10:28)
--- NOTE | 2019-11-26 08:14 | PCM.DCSUM1 ---
Discharge Summary - Hospital Course Free Text/Narrative:: [facility] LIVE L/D Delivery Note Patient Name: DEXTER CORONADO Date of : 89 Patient Status: Inpatient Attending Provider: Bjorn Valencia Date: 11/25/19 04:48 Initialization Date: 11/25/19 04:48 L & D Note - General Info Date of Service: 11/25/19 Mother's Due Date: 12/07/19 - Delivery Note Labor: Spontaneous Delivery Outcome: Livebirth (Male liveborn Saturday11/25/19/ at 0431 hrs. male liveborn 24/02/70 grams 7 pounds 10.4 ounces Apgars 8/9 at one and 5 minutes respectively MIR nuchal cord tight) Delivery Method: Spontaneous Vaginal Delivery-Single Infant Delivery Mode: Spontaneous Presentation: Left Occiput Anterior (MIR) Nuchal Cord: Present (tight cut and delivery within 5 seconds) Prep: Povidone-Iodine (Betadine Anesthesia Type: None Episiotomy Type: None Laceration: None Placenta: Intact, Spontaneous (At 0433 hrs. on 11/25/2019) Cord: 3 Vessels Estimated Blood Loss: 250 Resuscitation Needed: No [place]: Suctioned, Bulb Syringe, Stimulated, Warmed, [place] Used, Warmer Used Provider: Bjorn Valencia Score 1 min: 8 Score 5 min: 9 - General Info Date of Service: 11/25/19 Functional Status: Reports: Pain Controlled - Review of Systems General: Reports: No Symptoms HEENT: Reports: No Symptoms Pulmonary: Reports: No Symptoms Cardiovascular: Reports: No Symptoms Gastrointestinal: Reports: No Symptoms Genitourinary: Reports: No Symptoms Musculoskeletal: Reports: No Symptoms Skin: Reports: No Symptoms Neurological: Reports: No Symptoms Psychiatric: Reports: No Symptoms - Patient Data Weight - Most Recent: 170 lb Lab Results Last 24 Hours: Laboratory Results - last 24 hr 11/25/19 Range/Units 04:25 WBC 14.63 H (3.98-10.04) K/mm3 RBC 4.54 (3.98-5.22) M/mm3 Hgb 13.6 (11.2-15.7) gm/dl Hct 41.0 (34.1-44.9) % MCV 90.3 (79.4-94.8) fl MCH 30.0 (25.6-32.2) pg MCHC 33.2 (32.2-35.5) g/dl RDW Std Deviation 45.2 (36.4-46.3) fL Plt Count 285 (182-369) K/mm3 MPV 10.7 (9.4-12.3) fl Neut % (Auto) 72.0 H (34.0-71.1) % Lymph % (Auto) 18.1 L (19.3-51.7) % [place] % (Auto) 6.7 (4.7-12.5) % Eos % (Auto) 0.9 (0.7-5.8) Baso % (Auto) 0.3 (0.1-1.2) % Neut # (Auto) 10.53 H (1.56-6.13) K/mm3 Lymph # (Auto) 2.65 (1.18-3.74) K/mm3 [place] # (Auto) 0.98 H (0.24-0.36) K/mm3 Eos # (Auto) 0.13 (0.04-0.36) K/mm3 Baso # (Auto) 0.05 (0.01-0.08) K/mm3 Med Orders - Current: Current Medications Lactated Ringer's (Ringers, Lactated) 1,000 mls @ 100 mls/hr IV ASDIRECTED EVITA Oxytocin/Lactated Ringer's (Pitocin In Lr 20 Units/1,000 Ml) 20 unit in 1,000 mls @ 500 mls/hr IV .CONTINUOUS EVITA Nalbuphine HCl (Nubain) 10 mg IVPUSH Q2H PRN PRN Reason: Pain Sodium Chloride (Saline Flush) 10 ml FLUSH ASDIRECTED PRN PRN Reason: Keep Vein Open - Exam General: Alert, Oriented HEENT: Pupils Equal, Mucous Membr. Moist/[place]ill Neck: Supple Lungs: Clear to Auscultation, Normal Respiratory Effort Cardiovascular: Regular Rate, Regular Rhythm (Female) Exam: Normal External Exam Extremities: Normal Inspection, Non-Tender, No Pedal Edema, Normal Capillary Refill Skin: Warm, Dry, Intact Neurological: No New Focal Deficit Psy/Mental Status: Alert, Normal Affect, Normal Mood - Problem List & Annotations (1) 38 weeks gestation of SNOMED Code(s): 53809050 Code(s): Z3A.38 - 38 WEEKS GESTATION OF Status: Acute Current Visit: No (2) Labor and delivery complicated by cord around neck, with compression, not applicable or unspecified SNOMED Code(s): 391840146 Code(s): O69.1XX0 - LABOR AND DELIVERY COMP BY CORD AROUND NECK, W COMPRSN, UNSP Status: Acute Current Visit: Yes (3) Born by normal vaginal delivery SNOMED Code(s): 682758720 Code(s): O80 - ENCOUNTER FOR FULL-TERM UNCOMPLICATED DELIVERY Status: Acute Current Visit: Yes - Problem List Review Problem List Initiated/Reviewed/Updated: No - My Orders Last 24 Hours: My Active Orders 11/25/19 03:54 Non Stress Test [RC] PER UNIT ROUTINE Vital Signs [RC] PER UNIT ROUTINE Resuscitation Status Routine 11/25/19 04:14 Nalbuphine [Nubain] 10 mg IVPUSH Q2H PRN Sodium Chloride 0.9% [Saline Flush] 10 ml FLUSH ASDIRECTED PRN 11/25/19 04:15 Patient Status [ADT] Routine Activity as Tolerated [RC] PFP Communication Order [RC] ASDIRECTED Heart Tones [RC] ASDIRECTED Non Stress Test [RC] PER UNIT ROUTINE Notify Provider [RC] PFP Notify Provider [RC] PRN Peripheral IV Care [RC] . DIRECTED Vital Signs [RC] PER UNIT ROUTINE Lactated Ringers [Ringers, Lactated] 1,000 ml IV ASDIRECTED Oxytocin/Lactated Ringers [Pitocin in LR 20 Units/1,000 ML] 20 unit in 1,000 ml IV .CONTINUOUS Electronic Heart Tones Ext w TOCO [WOMSER] Routine Electronic Heart Tones Internal [WOMSER] Per Unit Routine Peripheral IV Insertion Adult [OM.PC] Routine 11/25/19 04:25 CBC WITH AUTO DIFF [HEME] Stat RAPID PLASMA REAGIN,RPR [CHEM] Routine 11/25/19 Breakfast Regular Diet [DIET] - Plan Plan:: Plan delivery HPI Initial Comments: [facility] LIVE L/D Delivery Note Patient Name: DEXTER CORONADO JU Date of : 89 Patient Status: Inpatient Attending Provider: Bjorn Valencia Date: 11/25/19 04:48 Initialization Date: 11/25/19 04:48 L & D Note - General Info Date of Service: 11/25/19 Mother's Due Date: 12/07/19 - Delivery Note Labor: Spontaneous Delivery Outcome: Livebirth (Male liveborn Saturday11/25/19 at 0431 hrs. male liveborn 30//70 grams 7 pounds 10.4 ounces Apgars 8/9 at one and 5 minutes respectively MIR nuchal cord tight) Delivery Method: Spontaneous Vaginal Delivery-Single Delivery Mode: Spontaneous Presentation: Left Occiput Anterior (MIR) Nuchal Cord: Present (tight cut and delivery within 5 seconds) Prep: Povidone-Iodine (Betadine Anesthesia Type: None Episiotomy Type: None Laceration: None Placenta: Intact, Spontaneous (At 0433 hrs. on 11/25/2019) Cord: 3 Vessels Estimated Blood Loss: 250 Resuscitation Needed: No [place]: Suctioned, Bulb Syringe, Stimulated, Warmed, [place] Used, Warmer Used Provider: Bjorn Valencia Score 1 min: 8 Score 5 min: 9 - General Info Date of Service: 11/25/19 Functional Status: Reports: Pain Controlled - Review of Systems General: Reports: No Symptoms HEENT: Reports: No Symptoms Pulmonary: Reports: No Symptoms Cardiovascular: Reports: No Symptoms Gastrointestinal: Reports: No Symptoms Genitourinary: Reports: No Symptoms Musculoskeletal: Reports: No Symptoms Skin: Reports: No Symptoms Neurological: Reports: No Symptoms Psychiatric: Reports: No Symptoms - Patient Data Weight - Most Recent: 170 lb Lab Results Last 24 Hours: Laboratory Results - last 24 hr 11/25/19 Range/Units 04:25 WBC 14.63 H (3.98-10.04) K/mm3 RBC 4.54 (3.98-5.22) M/mm3 Hgb 13.6 (11.2-15.7) gm/dl Hct 41.0 (34.1-44.9) % MCV 90.3 (79.4-94.8) fl MCH 30.0 (25.6-32.2) pg MCHC 33.2 (32.2-35.5) g/dl RDW Std Deviation 45.2 (36.4-46.3) fL Plt Count 285 (182-369) K/mm3 MPV 10.7 (9.4-12.3) fl Neut % (Auto) 72.0 H (34.0-71.1) % Lymph % (Auto) 18.1 L (19.3-51.7) % [place] % (Auto) 6.7 (4.7-12.5) % Eos % (Auto) 0.9 (0.7-5.8) Baso % (Auto) 0.3 (0.1-1.2) % Neut # (Auto) 10.53 H (1.56-6.13) K/mm3 Lymph # (Auto) 2.65 (1.18-3.74) K/mm3 [place] # (Auto) 0.98 H (0.24-0.36) K/mm3 Eos # (Auto) 0.13 (0.04-0.36) K/mm3 Baso # (Auto) 0.05 (0.01-0.08) K/mm3 Med Orders - Current: Current Medications Lactated Ringer's (Ringers, Lactated) 1,000 mls @ 100 mls/hr IV ASDIRECTED EVITA Oxytocin/Lactated Ringer's (Pitocin In Lr 20 Units/1,000 Ml) 20 unit in 1,000 mls @ 500 mls/hr IV .CONTINUOUS EVITA Nalbuphine HCl (Nubain) 10 mg IVPUSH Q2H PRN PRN Reason: Pain Sodium Chloride (Saline Flush) 10 ml FLUSH ASDIRECTED PRN PRN Reason: Keep Vein Open - Exam General: Alert, Oriented HEENT: Pupils Equal, Mucous Membr. Moist/[place]ill Neck: Supple Lungs: Clear to Auscultation, Normal Respiratory Effort Cardiovascular: Regular Rate, Regular Rhythm (Female) Exam: Normal External Exam Extremities: Normal Inspection, Non-Tender, No Pedal Edema, Normal Capillary Refill Skin: Warm, Dry, Intact Neurological: No New Focal Deficit Psy/Mental Status: Alert, Normal Affect, Normal Mood - Problem List & Annotations (1) 38 weeks gestation of SNOMED Code(s): 42154759 Code(s): Z3A.38 - 38 WEEKS GESTATION OF Status: Acute Current Visit: No (2) Labor and delivery complicated by cord around neck, with compression, not applicable or unspecified SNOMED Code(s): 912983371 Code(s): O69.1XX0 - LABOR AND DELIVERY COMP BY CORD AROUND NECK, W COMPRSN, UNSP Status: Acute Current Visit: Yes (3) Born by normal vaginal delivery SNOMED Code(s): 375818681 Code(s): O80 - ENCOUNTER FOR FULL-TERM UNCOMPLICATED DELIVERY Status: Acute Current Visit: Yes - Problem List Review Problem List Initiated/Reviewed/Updated: No - My Orders Last 24 Hours: My Active Orders 11/25/19 03:54 Non Stress Test [RC] PER UNIT ROUTINE Vital Signs [RC] PER UNIT ROUTINE Resuscitation Status Routine 11/25/19 04:14 Nalbuphine [Nubain] 10 mg IVPUSH Q2H PRN Sodium Chloride 0.9% [Saline Flush] 10 ml FLUSH ASDIRECTED PRN 11/25/19 04:15 Patient Status [ADT] Routine Activity as Tolerated [RC] PFP Communication Order [RC] ASDIRECTED Heart Tones [RC] ASDIRECTED Non Stress Test [RC] PER UNIT ROUTINE Notify Provider [RC] PFP Notify Provider [RC] PRN Peripheral IV Care [RC] . DIRECTED Vital Signs [RC] PER UNIT ROUTINE Lactated Ringers [Ringers, Lactated] 1,000 ml IV ASDIRECTED Oxytocin/Lactated Ringers [Pitocin in LR 20 Units/1,000 ML] 20 unit in 1,000 ml IV .CONTINUOUS Electronic Heart Tones Ext w TOCO [WOMSER] Routine Electronic Heart Tones Internal [WOMSER] Per Unit Routine Peripheral IV Insertion Adult [OM.PC] Routine 11/25/19 04:25 CBC WITH AUTO DIFF [HEME] Stat RAPID PLASMA REAGIN,RPR [CHEM] Routine 11/25/19 Breakfast Regular Diet [DIET] - Plan Plan:: Plan delivery Brief History: [facility] LIVE . L/D Delivery Note. [facility]: [id number]. Date of : Patient Status: Inpatient. Attending Provider: Bjorn Valencia Number: [id number]. Date: 11/25/19 04:48Initialization Date: 11/25/19 04:48. L & D Note. - General Info. Date of Service: 11/25/19. Mother's Due Date: 12/07/19. - Delivery Note. Labor: Spontaneous. Delivery Outcome: Livebirth ( Male liveborn Saturday11/25/19/ at 0431 hrs. male liveborn 30/4/70 grams 7 pounds 10.4 ounces Apgars 8/9 at one and 5 minutes respectively MIR nuchal cord tight). Infant Delivery Method: Spontaneous Vaginal Delivery-Single. Delivery Mode: Spontaneous. Presentation: Left Occiput Anterior (MIR). Nuchal Cord: Present (tight cut and delivery within 5 seconds). Prep: Povidone- Iodine (Betadine. Anesthesia Type: None. Episiotomy Type: None. Laceration: None. Placenta: Intact, Spontaneous (At 0433 hrs. on 11/25/2019). Cord: 3 Vessels. Estimated Blood Loss: 250. Resuscitation Needed: No. : Suctioned, Bulb Syringe, Stimulated, Warmed, [place] Used, Warmer Used. Provider: Bjorn Valencia. Score 1 min: 8. Score 5 min : 9. - General Info. Date of Service: 11/25/19. Functional Status: Reports: Pain Controlled. - Review of Systems. General: Reports: No Symptoms. HEENT: Reports: No Symptoms. Pulmonary: Reports: No Symptoms. Cardiovascular: Reports : No Symptoms. Gastrointestinal: Reports: No Symptoms. Genitourinary: Reports : No Symptoms. Musculoskeletal: Reports: No Symptoms. Skin: Reports: No Symptoms. Neurological: Reports: No Symptoms. Psychiatric: Reports: No Symptoms. - Patient Data. Weight - Most Recent: 170 lb. Lab Results Last 24 Hours: Laboratory Results - last 24 hr. 11/25/19Range/Units. 04:25. WBC 14.63 H (3.98-10.04) K/mm3. RBC 4.54 (3.98-5.22) M/mm3. Hgb 13.6 (11.2-15.7 ) gm/dl. Hct 41.0 (34.1-44.9) %. MCV 90.3 (79.4-94.8) fl. MCH 30.0 (25.6- 32.2) pg. MCHC 33.2 (32.2-35.5) g/dl. RDW Std Deviation 45.2 (36.4-46.3) fL. Plt Count 285 (182-369) K/mm3. MPV 10.7 (9.4-12.3) fl. Neut % (Auto) 72.0 H (34.0-71.1) %. Lymph % (Auto) 18.1 L (19.3-51.7) %. [place] % (Auto) 6.7 (4.7-12.5) %. Eos % (Auto) 0.9 (0.7-5.8). Baso % (Auto) 0.3 (0.1-1.2) % . Neut # (Auto) 10.53 H (1.56-6.13) K/mm3. Lymph # (Auto) 2.65 (1.18-3.74) K /mm3. [place] # (Auto) 0.98 H (0.24-0.36) K/mm3. Eos # (Auto) 0.13 (0.04-0.36) K/mm3. Baso # (Auto) 0.05 (0.01-0.08) K/mm3. Med Orders - Current: Current Medications. Lactated Ringer's (Ringers, Lactated) 1,000 mls @ 100 mls/hr IV ASDIRECTED EVITA. Oxytocin/Lactated Ringer's (Pitocin In Lr 20 Units/1,000 Ml) 20 unit in 1,000 mls @ 500 mls/hr IV .CONTINUOUS EVITA. Nalbuphine HCl (Nubain) 10 mg IVPUSH Q2H PRN. PRN Reason: Pain. Sodium Chloride (Saline Flush) 10 ml FLUSH ASDIRECTED PRN. PRN Reason: Keep Vein Open. - Exam. General: Alert, Oriented. HEENT: Pupils Equal, Mucous Membr. Moist/[place]argill. Neck: Supple. Lungs : Clear to Auscultation, Normal Respiratory Effort. Cardiovascular: Regular Rate, Regular Rhythm. (Female) Exam: Normal External Exam. Extremities: Normal Inspection, Non-Tender, No Pedal Edema, Normal Capillary Refill. Skin: Warm, Dry, Intact. Neurological: No New Focal Deficit. Psy/Mental Status: Alert, Normal Affect, Normal Mood. - Problem List & Annotations. (1) 38 weeks gestation of . SNOMED Code(s): 77728036. Code(s): Z3A.38 - 38 WEEKS GESTATION OF Status: Acute Current Visit: No. (2) Labor and delivery complicated by cord around neck, with compression, not applicable or unspecified. SNOMED Code(s): 680804269. Code(s): O69.1XX0 - LABOR AND DELIVERY COMP BY CORD AROUND NECK, W COMPRSN, UNSP Status: Acute Current Visit: Yes. (3) Born by normal vaginal delivery. SNOMED Code(s): 273931982. Code(s): O80 - ENCOUNTER FOR FULL-TERM UNCOMPLICATED DELIVERY Status: Acute Current Visit: Yes. - Problem List Review. Problem List Initiated/Reviewed/ Updated: No. - My Orders. Last 24 Hours: My Active Orders. 11/25/19 03:54. Non Stress Test [RC] PER UNIT ROUTINE. Vital Signs [RC] PER UNIT ROUTINE. Resuscitation Status Routine. 11/25/19 04:14. Nalbuphine [Nubain] 10 mg IVPUSH Q2H PRN. Sodium Chloride 0.9% [Saline Flush] 10 ml FLUSH ASDIRECTED PRN. 11/25/19 04:15. Patient Status [ADT] Routine. Activity as Tolerated [RC] PFP. Communication Order [RC] ASDIRECTED. Heart Tones [RC ] ASDIRECTED. Non Stress Test [RC] PER UNIT ROUTINE. Notify Provider [RC ] PFP. Notify Provider [RC] PRN. Peripheral IV Care [RC] . DIRECTED. Vital Signs [RC] PER UNIT ROUTINE. Lactated Ringers [Ringers, Lactated] 1,000 ml IV ASDIRECTED. Oxytocin/Lactated Ringers [Pitocin in LR 20 Units/1,000 ML] 20 unit in 1,000 ml IV .CONTINUOUS. Electronic Heart Tones Ext w TOCO [ WOMSER] Routine. Electronic Heart Tones Internal [WOMSER] Per Unit Routine. Peripheral IV Insertion Adult [OM.PC] Routine. 11/25/19 04:25. CBC WITH AUTO DIFF [HEME] Stat. RAPID PLASMA REAGIN,RPR [CHEM] Routine. 11/25/19 Breakfast. Regular Diet [DIET]. - Plan. Plan:: Plan delivery Diagnosis: Stroke: No - Discharge Data Discharge Date: 11/26/19 Discharge Disposition: Home, Self-Care 01 Condition: Good - Referral to Home Health Primary Care Physician: Bjorn Valencia MD - Discharge Diagnosis/Problem(s) (1) 38 weeks gestation of SNOMED Code(s): 54671855 ICD Code: Z3A.38 - 38 WEEKS GESTATION OF Status: Acute Current Visit: No (2) Labor and delivery complicated by cord around neck, with compression, not applicable or unspecified SNOMED Code(s): 624100694 ICD Code: O69.1XX0 - LABOR AND DELIVERY COMP BY CORD AROUND NECK, W COMPRSN, UNSP Status: Acute Current Visit: Yes (3) Born by normal vaginal delivery SNOMED Code(s): 567916085 ICD Code: O80 - ENCOUNTER FOR FULL-TERM UNCOMPLICATED DELIVERY Status: Acute Current Visit: Yes - Patient Summary/Data Complications: None Consults: None Hospital Course: uneventful - Patient Instructions Diet: Usual Diet as Tolerated Driving: Do Not Drive (48 hours) Showering/Bathing: May Shower Notify Provider of: Fever, Increased Pain, Swelling and Redness, Drainage, Nausea and/or Vomiting - Discharge Plan *PRESCRIPTION DRUG MONITORING PROGRAM REVIEWED*: Not Applicable *COPY OF PRESCRIPTION DRUG MONITORING REPORT IN PATIENT NIYA: Not Applicable Home Medications: Home Meds Acetaminophen [Tylenol] 650 mg PO Q6H PRN #0 tablet 09/01/16 [Rx] Docusate Sodium [Colace] 100 mg PO BID PRN #0 cap 09/01/16 [Rx] Ibuprofen [IJD: Ibuprofen] 200 - 600 mg PO Q6H PRN #0 tablet 09/01/16 [Rx] Witch Terese [Tucks] 1 pad TOP ASDIRECTED PRN #0 pad 09/01/16 [Rx] Acetaminophen [Tylenol] 650 mg PO Q6H PRN tablet 11/26/19 [Rx] Benzocaine/Menthol [Dermoplast Pain Relief [place]] 1 gm TOP ASDIRECTED PRN canister 11/26/19 [Rx] Docusate Sodium [Colace] 100 mg PO BID PRN cap 11/26/19 [Rx] Ibuprofen [Motrin] 600 mg PO Q6H PRN tablet 11/26/19 [Rx] Rach Mayoel [Tucks] 1 pad TOP ASDIRECTED PRN pad 11/26/19 [Rx] - Discharge Summary/Plan Comment DC Time >30 min.: No - Patient Data Vitals - Most Recent: Last Vital Signs Temp 97.7 F 11/25/19 17:56 Pulse 79 11/26/19 05:06 Resp 15 11/26/19 05:06 BP 100/59 L 11/26/19 05:06 Pulse Ox 97 11/26/19 05:06 Weight - Most Recent: 170 lb 6.4 oz Lab Results - Last 24 hrs: Laboratory Results - last 24 hr 11/25/19 11/26/19 Range/Units 04:25 05:03 WBC 14.37 H (3.98-10.04) K/mm3 RBC 4.20 (3.98-5.22) M/mm3 Hgb 12.9 (11.2-15.7) gm/dl Hct 38.0 (34.1-44.9) % MCV 90.5 (79.4-94.8) fl MCH 30.7 (25.6-32.2) pg MCHC 33.9 (32.2-35.5) g/dl RDW Std Deviation 45.2 (36.4-46.3) fL Plt Count 236 (182-369) K/mm3 MPV 10.8 (9.4-12.3) fl Neut % (Auto) 73.9 H (34.0-71.1) % Lymph % (Auto) 18.2 L (19.3-51.7) % [place] % (Auto) 6.3 (4.7-12.5) % Eos % (Auto) 1.3 (0.7-5.8) Baso % (Auto) 0.3 (0.1-1.2) % Neut # (Auto) 10.62 H (1.56-6.13) K/mm3 Lymph # (Auto) 2.62 (1.18-3.74) K/mm3 [place] # (Auto) 0.91 H (0.24-0.36) K/mm3 Eos # (Auto) 0.18 (0.04-0.36) K/mm3 Baso # (Auto) 0.04 (0.01-0.08) K/mm3 Manual Slide Review Abnormal smear RPR Non-reactive (NONREACTIVE) Med Orders - Current: Current Medications Acetaminophen (Tylenol) 650 mg PO Q4H PRN PRN Reason: mild pain or fever Benzocaine/Menthol (Dermoplast Pain Relief [place]) 1 gm TOP ASDIRECTED PRN PRN Reason: Pain Docusate Sodium (Colace) 100 mg PO BID PRN PRN Reason: Constipation Ibuprofen (Motrin) 600 mg PO Q4H PRN PRN Reason: Mild pain or fever Last Admin: 11/26/19 05:04 Dose: 600 mg Witch Terese (Tucks) 1 pad TOP ASDIRECTED PRN PRN Reason: Perineal Comfort Measure Last Admin: 11/25/19 05:34 Dose: 1 container Discontinued Medications Lactated Ringer's (Ringers, Lactated) 1,000 mls @ 100 mls/hr IV ASDIRECTED EVITA Oxytocin/Lactated Ringer's (Pitocin In Lr 20 Units/1,000 Ml) 20 unit in 1,000 mls @ 500 mls/hr IV .CONTINUOUS EVITA Nalbuphine HCl (Nubain) 10 mg IVPUSH Q2H PRN PRN Reason: Pain Sodium Chloride (Saline Flush) 10 ml FLUSH ASDIRECTED PRN PRN Reason: Keep Vein Open
[2019-11-26 12:19] VITALS: BP 126/73; PULSE 85
== END 2019-11-26 11:15 | disposition home or self-care (01) | DRG 807 ==
LOC: JD.OBCHECK 03:44 → JD.OB 04:19 → UNDOADMOB 04:19 → JD.OB 04:31 → INTOOBSV 04:31 → OBSVTOIN 04:31 → JD.OB 04:33 → UNDODISIN 11-26 11:15
PROVIDERS: ADMIT Obstetrics & Gynecology; ATTEND Obstetrics & Gynecology
PROC: 10E0XZZ Delivery of Products of Conception, External Approach (ICD-10-PCS; principal; 2019-11-25)
DX: O69.1XX0 Labor and delivery complicated by cord around neck, with compression, not applicable or unspecified (principal); Z37.0 Single live birth; Z3A.38 38 weeks gestation of pregnancy
CPT/HCPCS: 36415; 59025; 59409; 85025; 86592; A9270-GY